=== PATIENT | female | born 1995 | race Caucasian/White ===

== ENCOUNTER 2017-04-14 11:29 | Emergency (ER) | payer MEDICAID ==
[~2017-04-14] VITALS: Ht 162.6 cm; Wt 121.6 kg
[~2017-04-14 11:29] MED LIST: CYCL10TA9 PO; FLUC150T2 PO; METR500T21 PO; NAPR500T PO; PRD20T PO
[2017-04-14] MEDS ORDERED: diphenhydrAMINE 50 MG/ML INJ (BENADRYL) ONE (12:41)
[2017-04-14] MEDS ORDERED: NS IV 1000 ML 1,000 ML ONE (12:41)
[2017-04-14] MEDS ORDERED: PROCHLORPERAZINE 10 MG/2ML INJ (COMPAZINE) ONE (12:42)
--- NOTE | 2017-04-14 12:54 | ED Headache ---
General Stated Complaint: MIGRAINE FOR A WEEK Source: patient Exam Limitations: no limitations History of Present Illness Time seen by provider: 12:53 Initial Comments To ER with reports of migraine. She states that she's had headaches her entire life but has never had them evaluated. Since she became they've been worse and over the course of the past week they've been even more frequent. This was been present for about a week. She does have associated photophobia, nausea. She takes Tylenol and usually that aborts these but that did not work for this one. Her last dose of Tylenol was earlier this morning. She is 12 weeks gestation. No fevers chills or head injury. Timing/Duration: 1 week, increasing Severity/Quality: constant Associated Symptoms: denies symptoms Allergies and Home Medications Allergies Coded Allergies: No Known Drug Allergies (Unverified , 07/06/16) Home Medications Fluconazole 150 Mg Tablet, 150 MG PO UD, #3 Ref 1 1 po q3days. Prescribed by: FERNANDA TIRADO on 07/06/161653 Metronidazole 500 Mg Tablet, 500 MG PO BID, #14 Ref 0 Prescribed by: FERNANDA TIRADO on 07/06/16 1654 Constitutional: see HPI Eyes: No Symptoms Reported Ears, Nose, Mouth, Throat: no symptoms reported Respiratory: no symptoms reported Cardiovascular: no symptoms reported Genitourinary: no symptoms reported Musculoskeletal: no symptoms reported Skin: no symptoms reported Psychiatric/Neurological: No Symptoms Reported Past Qlmpnjk-Fjzvkd-Eefbux Hx Patient Social History Recent Foreign Travel: No Contact w/Someone Who Travel: No Recent Hopitalizations: No Immunizations Up To Date Tetanus Booster (TDap): Less than 5yrs Seasonal Allergies Seasonal Allergies: No Surgeries HX Surgeries: Yes Surgeries: Section Respiratory Hx Respiratory Disorders: No Cardiovascular Hx Cardiac Disorders: No Neurological Hx Neurological Disorders: No Genitourinary Hx Genitourinary Disorders: No Gastrointestinal Hx Gastrointestinal Disorders: No Musculoskeletal Hx Musculoskeletal Disorders: Yes Musculoskeletal Disorders: Scoliosis, Chronic Back Pain Endocrine Hx Endocrine Disorders: No HEENT HX ENT Disorders: No Cancer Hx Cancer: No Psychosocial Hx Psychiatric Problems: No Family Medical History Significant Family History: No Pertinent Family Hx Physical Exam Vital Signs Capillary Refill : General Appearance: WD/WN, no apparent distress HEENT: PERRL/EOMI, normal ENT inspection Neck: non-tender, full range of motion Cardiovascular: regular rate, rhythm, no murmur Respiratory: normal breath sounds, no respiratory distress, no accessory muscle use Gastrointestinal: normal bowel sounds, non tender, soft Extremities: normal range of motion, non-tender Psychiatric: alert, oriented x 3 Crainal Nerves: normal hearing, normal speech, PERRL Skin: normal color, warm/dry Progress/Results/Core Measures Results/Orders My Orders Orders - SHANTEL WATSON APRN Diphenhydramine Injection (Benadryl Inje (04/14/17 12:41) Ns Iv 1000 Ml (Sodium Chloride 0.9%) (04/14/17 12:41) Prochlorperazine Injection (Compazine In (04/14/17 12:42) Ns Iv 1000 Ml (Sodium Chloride 0.9%) (04/14/17 13:00) Diphenhydramine Injection (Benadryl Inje (04/14/17 13:00) Prochlorperazine Injection (Compazine In (04/14/17 13:00) Medications Given in ED Current Medications Medications Dose Ordered Sig/Sabino Route Start Time Stop Time Status Last Admin Dose Admin Diphenhydramine HCl 50 mg STK-MED ONCE .ROUTE 04/14/17 12:41 04/14/17 12:49 DC 04/14/17 12:53 25 MG Prochlorperazine Edisylate 10 mg STK-MED ONCE .ROUTE 04/14/17 12:42 04/14/17 12:49 DC 04/14/17 12:53 5 MG Sodium Chloride 1,000 ml @ ud STK-MED ONCE .ROUTE 04/14/17 12:41 04/14/17 12:49 DC 04/14/17 12:52 1,000 MLS/HR Departure Communication Progress Notes 1329-headache has improved at this time Impression Impression: Primary Impression: Headache Disposition: 01 HOME, SELF-CARE Condition: Improved Departure-Patient Inst. Decision time for Depature: 13:29 Referrals: NO,LOCAL PHYSICIAN (PCP/Family) Primary Care Physician Patient Instructions: Headache, Adult (DC) SHANTEL WATSON APRN Apr 14, 2017 12:54
[2017-04-14] MEDS ORDERED: diphenhydrAMINE 50 MG/ML INJ (BENADRYL) IVP ONE (13:00)
[2017-04-14] MEDS ORDERED: PROCHLORPERAZINE 10 MG/2ML INJ (COMPAZINE) IV ONE (13:00)
[2017-04-14] MEDS ORDERED: NS IV 1000 ML 1,000 ML IV SCH (13:00)
[2017-04-14 13:36] VITALS: BP 119/60
== END 2017-04-14 13:37 | disposition home or self-care (01) ==
LOC: EDUNIT# 11:29 → ER 11:31
DX: O99.351 Diseases of the nervous system complicating pregnancy, first trimester (principal); R51 Headache; Z3A.12 12 weeks gestation of pregnancy
CPT/HCPCS: 96361; 96374; 96375; 99282

== ENCOUNTER → 2017-06-09 | Outpatient (CLI) | payer MEDICAID ==
--- NOTE | 2017-06-09 13:37 | Diagnostic Imaging Report ---
INDICATION: survey. TECHNIQUE: Multiple real-time grayscale images were obtained over the gravid uterus. COMPARISON: None. FINDINGS: heart rate is 149 beats per minute. The cervix is 3.9 cm in length and is closed. Placenta is posterior. No placenta previa. The urinary bladder and two umbilical arteries are seen. Cord insertion, stomach, the kidneys, cisterna magna and the ventricles appear unremarkable. The cardiac four-chamber view appears unremarkable. The upper spine is seen with no abnormality. The mid and lower aspects of the spine are not seen due to position. Biometrical measurements are as follows: Biparietal 4.7 cm, age 20 weeks 3 days. Head circumference 17.8 cm, age 10 weeks 3 days. Abdominal circumference 15.9 cm, age 21 weeks 1 days. Femur length 3.5 cm, age 21 weeks 1 days. Sonographic estimate age: 20 weeks 6 days. Sonographic estimated date of delivery: 10/21/2017. Estimated Weight: 390 gm (+/- 57 gm). LMP percentile: 43%. heart rate: 149 beats per minute. number: 1 of 1. IMPRESSION: The mid and lower spine is not well seen due to position. Followup within 2-3 weeks is suggested to reevaluate. Dictated by: Dictated on workstation # [id number]
== END ==
LOC: RAD 09:50
PROVIDERS: ATTEND Obstetrics & Gynecology
DX: Z36 Encounter for antenatal screening of mother (principal); Z3A.20 20 weeks gestation of pregnancy
CPT/HCPCS: 76805